=== PATIENT | female | born 1950 | race Caucasian/White ===

== ENCOUNTER → 2017-05-14 | Outpatient (CLI) | payer MEDICARE, OTHER ==
[~2017-05-14] MED LIST: APRESOLINE PO; ASPIRINEC PO; AZULFIDINE PO; CADUET 5 MG/801 TAB PO; CELEXA PO; COUMADIN PO; FOLIC ACID PO; LISINOPRIL PO; LOPRESSOR PO; PLAQUENIL200 MG PO; TOPROL XL PO
--- NOTE | ~2017-05-14 | MY11 ---
[facility] A Service of [facility] RADIOLOGY TEXT RESULTS PATIENT: DERECK TURCIOS LOCATION: [facility] : 46 UNIT #: [id number] AGE: [address]: Patricia Klein APRN SEX: F ORDER DR: [id number] [address] [address] [id number] O MR#: [id number] Acc #: [id number] NAME: DERECK TURCIOS : 1950 SEX: F STUDY DATE/TIME: 05/14/2017 10:02 UNIT: [facility] ROOM: STUDY DESCRIPTION: MY Mammogram Screening Dig Kai Attending Physician: Patricia Klein A.P.R.N. Referring Physician: Patricia Klein A.P.R.N. Ordering Physician: Patricia Klein A.P.R.N. Primary Care Physician: Patricia Klein A.P.R.N. MEDICAL IMAGING REPORT This report is preliminary unless electronic signature is present. EXAM Digital screening mammogram 05/14/2017 HISTORY 66-year-old woman, positive family history, paternal cousin. Previous cyst aspiration. Annual screen. COMPARISON STUDIES 04/21/2015 FINDINGS Digital imaging of each breast was completed utilizing screening protocol. Review includes FDA-approved CAD device. Breast parenchyma is heterogeneous with subareolar duct prominence stable in each breast. There is no dominant mass. There are no suspicious microcalcifications and no architectural deformity. Accessory tissue projects in the right axillary tail. IMPRESSION Benign mammogram. Annual screening recommended. BIRADS II Patients over the age of 40 are entered into a reminder system with target due date for the next mammogram. A result letter will also be sent to the patient. BIRADS: 2 - Benign finding Dictated by... Jerry Thompson M.D. THIS IS AN ELECTRONICALLY VERIFIED REPORT Jerry Thompson M.D. at 05/15/2017 3:39 PM JETT/bacilio [facility] A Service of [facility] RADIOLOGY TEXT RESULTS PATIENT: DERECK TURCIOS LOCATION: [facility] #: [id number] : 46 UNIT #: [id number] AGE: [address]: Patricia Klein APRN SEX: F ORDER DR: TD: 05/15/2017 15:30 JOB #: [id number] MEDICAL IMAGING REPORT Page 1 of 1
== END | disposition home or self-care (01) ==
LOC: SMAM 09:17
DX: Z12.31 Encounter for screening mammogram for malignant neoplasm of breast (principal); Z80.3 Family history of malignant neoplasm of breast; Z98.890 Other specified postprocedural states
CPT/HCPCS: G0202

== ENCOUNTER → 2017-07-22 | Outpatient (CLI) | payer MEDICARE, OTHER ==
--- NOTE | ~2017-07-22 | EKG ---
PATIENT: DERECK TURCIOS UNIT #: [id number] Ventricular Rate: 49 BPM Atrial Rate: 49 BPM P-R Interval: 132 ms QRS Duration: 76 ms Q-T Interval: 470 ms QTC Calculation(Bezet): 424 ms P Schriever: 41 degrees Calculated R Schriever: 6 degrees Calculated T Schriever: 49 degrees Diagnosis Line: Marked sinus bradycardia Diagnosis Line: Nonspecific ST and T wave abnormality Diagnosis Line: Abnormal ECG Diagnosis Line: No previous ECGs available Diagnosis Line: Confirmed by LILLIANA CERVANTES MD ([id number]) on Diagnosis Line: 07/24/2017 8:23:20 AM INTERPRETING MD: HELEN SUERO
[2017-07-22 10:35] LABS: HEMATOCRIT 47.3 % (35.0-45.0); MEAN CELL VOLUME 93.2 FL (83-96); MEAN CORPUSCULAR HEMOGLOBIN 31.5 PG (28-34); MEAN CORPUSCULAR HGB CONC 33.8 g/dL (30-36); RED BLOOD COUNT 5.07 X10e (3.90-5.30); RED CELL DISTRIBUTION WIDTH 13.8 % (11.0-15.5); WHITE BLOOD COUNT 9.1 X10e3 (4.0-10.5)
[2017-07-22 10:59] LABS: BUN/CREATININE RATIO 18.88; CALCIUM SERUM 9.1 mg/dL (8.4-10.2); CREATININE SERUM 0.9 mg/dL (0.6-1.4); GLOM FILT RATE Estimated 65.7 mL/min (>60); POTASSIUM 4.1 mmol/L (3.5-5.1)
== END | disposition home or self-care (01) ==
LOC: SLAB 10:16
PROVIDERS: Urology
DX: Z01.818 Encounter for other preprocedural examination (principal); N81.11 Cystocele, midline; N39.3 Stress incontinence (female) (male); I10 Essential (primary) hypertension; R94.31 Abnormal electrocardiogram [ECG] [EKG]
CPT/HCPCS: 36415; 80048; 85027; 93005